=== PATIENT | male | born 1950 | race Caucasian/White ===

== ENCOUNTER 2017-09-25 00:51 | Inpatient (IN) | payer MEDICARE, MEDICAID ==
[~2017-09-25] VITALS: Ht 170.2 cm; Wt 98.9 kg
--- NOTE | 2017-09-25 01:20 | Emergency Room Report ---
History of Present Illness General Chief Complaint: Dyspnea/Respdistress Source: Patient Present Illness HPI 67-year-old male with a history of COPD, hypertension, diabetes, bipolar disorder presents to the ER with wheezing and shortness of breath that started this afternoon he reports he checked his pulse ox and it was in the 50s so he panicked and called 911. Reports a gave him one nebulizer treatment and patient feels much better, he has been on steroids every day for the past week, and he was just discharged from [facility] yesterday for COPD exacerbation. He reports he is supposed to have oxygen tank delivered to his home, but has never been on home O2 prior to this last hospitalization. He reports he feels much better after the nebulizer treatment.he also has prescription for steroids at home that he just filled. Allergies: Coded Allergies: ARIPIPRAZOLE (Verified Allergy, Unknown, 09/25/17) LORAZEPAM (Verified Allergy, Unknown, 09/25/17) Patient History Past Medical History: see triage record Reviewed Nursing Documentation: PMH: Agreed; PSxH: Agreed Nursing Documentation-PMH Hx Hypertension: Yes Hx COPD: Yes History Of Psychiatric Problem: Yes - BIPOLAR Review of Systems All Other Systems: negative except mentioned in HPI Physical Exam Vital Signs Date Time Temp Pulse Resp B/P (MAP) Pulse Ox O2 Delivery O2 Flow Rate FiO2 09/25/17 00:53 98.6 112 22 158/75 94 Simple Mask 98.6 Sp02 EP Interpretation: reviewed, normal General Appearance: no apparent distress, alert, non-toxic Head: normocephalic Eyes: bilateral eye normal inspection, bilateral eye PERRL, bilateral eye EOMI ENT: normal ENT inspection, hearing grossly normal, normal pharynx, no angioedema, normal voice, moist mucus membranes Neck: normal inspection, full range of motion, supple, supple/symm/no masses Respiratory: chest non-tender, lungs clear, wheezing - End expiratory wheezing at bilateral bases, chest symmetrical, palpation of chest normal Cardiovascular #1: normal peripheral pulses, regular rate, rhythm Cardiovascular #2: 2+ radial (R), 2+ radial (L) Gastrointestinal: normal inspection, non tender, soft, no mass, no guarding, no rebound Rectal: deferred Genitourinary: normal inspection, no CVA tenderness Musculoskeletal: back normal, gait/station normal, normal range of motion, non- tender, no calf tenderness Neurologic: alert, responsive, enrollment advisor III-XII nml as tested, motor strength/tone normal, sensory intact, speech normal Psychiatric: judgement/insight normal, memory normal, mood/affect normal, no suicidal/homicidal ideation Skin: normal color, no rash, warm/dry, normal turgor Lymphatic: no adenopathy Medical Decision Making Diagnostic Impression: Primary Impression: Dyspnea ER Course Patient with COPD exacerbation, will admit as he is hypoxic and doesn't have oxygen at home. Given steroids, nebs, oxygen. Patient refused a CXR. Rhythm Strip Diag. Results Rhythm Strip Time: 01:57 EP Interpretation: yes Rate: 107 Rhythm: NSR, no PVC's, no ectopy Chest X-Ray Diagnostic Results Chest X-Ray Diagnostic Results : Chest X-Ray Ordered: Yes # of Views/Limited/Complete: 1 View Indication: Chest Pain EP Interpretation: Yes Interpretation: no consolidation, no effusion, no pneumothorax, no acute cardiopulmonary disease, other - Opacity vs. Scarring L lower lung field and R base Impression: No acute disease Electronically Signed by: Maurilio Anderson MD Last Vital Signs Date Time Temp Pulse Resp B/P (MAP) Pulse Ox O2 Delivery O2 Flow Rate FiO2 09/25/17 00:53 98.6 112 22 158/75 94 Simple Mask 98.6 Disposition: ADMITTED INPATIENT Condition: Stable Signed Out To: MAURILIO Parra M.D September 25, 2017 01:20
[2017-09-25] MEDS ORDERED: Ipratropium 0.02% Inh Soln 2.5ml UD HHN ONE (01:45)
[2017-09-25] MEDS ORDERED: Albuterol ud Inhalation HHN ONE (01:45)
[2017-09-25 02:10] LABS: BASOPHILS % (AUTO) 0.7 % (0.0-2.0); EOSINOPHILS % (AUTO) 0.1 % (0.0-3.0); HEMATOCRIT 33.9 % (42.0-52.0); HEMOGLOBIN 10.3 G/DL (14.2-18.0); MEAN CORPUSCULAR VOLUME 78 FL (80-99); MONOCYTES % (AUTO) 6.4 % (1.0-10.0); NEUTROPHILS % (AUTO) 74.8 % (45.0-75.0); PLATELET COUNT 210 K/UL (150-450); RED BLOOD COUNT 4.36 M/UL (4.70-6.10); RED CELL DISTRIBUTION WIDTH 20.7 % (11.6-14.8); WHITE BLOOD COUNT 6.8 K/UL (4.8-10.8)
[2017-09-25 02:19] LABS: ANION GAP 11 mmol/L (5-15); BLOOD UREA NITROGEN 11 mg/dL (7-18); CALCIUM 8.7 MG/DL (8.5-10.1); CARBON DIOXIDE 25 MMOL/L (21-32); CHLORIDE 103 MMOL/L (98-107); CREATININE 1.4 MG/DL (0.55-1.30); POTASSIUM 4.3 MMOL/L (3.5-5.1); SODIUM 139 MMOL/L (136-145)
[2017-09-25 02:24] LABS: ALANINE AMINOTRANSFERASE 67 U/L (12-78); ALBUMIN 2.7 G/DL (3.4-5.0); ALBUMIN/GLOBULIN RATIO 0.8 (1.0-2.7); ALKALINE PHOSPHATASE 155 U/L (46-116); ASPARTATE AMINO TRANSFERASE 65 U/L (15-37); BILIRUBIN,TOTAL 0.4 MG/DL (0.2-1.0)
[2017-09-25] MEDS ORDERED: METFORMIN HCL5000 GM MC (02:32)
[2017-09-25] MEDS ORDERED: ASPIRIN81 M3 PO (02:32)
[2017-09-25] MEDS ORDERED: LIPITOR80 MG ORAL (02:32)
[2017-09-25] MEDS ORDERED: DEPAKOTE125 MG PO (02:32)
[2017-09-25] MEDS ORDERED: COLACE100 MG ORAL (02:32)
[2017-09-25] MEDS ORDERED: GABAPENTIN250 MG/5 M PO (02:32)
[2017-09-25] MEDS ORDERED: ALPRAZOLAM0.5 M2 ORAL (02:32)
[2017-09-25 03:39] VITALS: BP 121/65
[2017-09-25 04:00] VITALS: BP 108/62
[2017-09-25] MEDS ORDERED: Albuterol/Ipratropium 3ml neb HHN PRN (06:45)
[2017-09-25] MEDS ORDERED: Norco 5mg/325mg tab ORAL PRN (07:00)
[2017-09-25 08:00] VITALS: BP 136/81
[2017-09-25] MEDS: metFORMIN 500mg tab ORAL SCH ×2 (08:50→09:00)
[2017-09-25] MEDS: Depakote 125mg Sprinkles ORAL SCH ×2 (08:51→09:00)
[2017-09-25] MEDS ORDERED: Docusate 100mg cap ORAL SCH (09:00)
[2017-09-25] MEDS ORDERED: Aspirin Baby 81mg ORAL SCH (09:00)
[2017-09-25 12:00] VITALS: BP 129/76
--- NOTE | 2017-09-25 13:41 | Consultation ---
History of Present Illness General Date patient seen: September 25, 2017 Chief Complaint: Dyspnea/Respdistress Reason for Consultation: dyspnea Present Illness HPI 67 year old female with hx of emphysema, morbid obesity, DM, PVD, debility presented to [facility] by paramedics b/o acute desaturation and dyspnea. His troponin was positive as well. therefore he is admitted to telemetry. Pt is visibly dyspnic and coughing constantly. Allergies: Coded Allergies: ARIPIPRAZOLE (Verified Allergy, Unknown, 09/25/17) LORAZEPAM (Verified Allergy, Unknown, 09/25/17) Medication History Scheduled Alprazolam (Alprazolam), 0.5 MG ORAL TID, (Reported) Atorvastatin (Lipitor), 80 MG ORAL BEDTIME, (Reported) Docusate Sodium* (Colace*), 100 MG ORAL DAILY, (Reported) Miscellaneous Medications Aspirin (Aspirin), 81 MG PO, (Reported) Divalproex Sodium (Depakote), 125 MG PO, (Reported) Gabapentin (Gabapentin), 250 MG PO, (Reported) Metformin Hcl (Metformin Hcl), 5,000 GM MC, (Reported) Patient History Healthcare decision maker Resuscitation status Full Code Advanced Directive on File No Review of Systems All Other Systems: negative except mentioned in HPI Physical Exam General Appearance: WD/WN, no apparent distress Lines, tubes and drains: peripheral HEENT: normocephalic, anicteric Neck: non-tender, normal alignment Respiratory/Chest: chest wall non-tender, lungs clear Breasts: no masses Cardiovascular/Chest: normal peripheral pulses Abdomen: normal bowel sounds Genitourinary/Rectal: normal genital exam Last 24 Hour Vital Signs Date Time Temp Pulse Resp B/P (MAP) Pulse Ox O2 Delivery O2 Flow Rate FiO2 09/25/17 12:00 96 09/25/17 12:00 97.7 97 22 129/76 90 Simple Mask 5.0 97.7 09/25/17 10:30 90 22 91 Simple Mask 3.0 28 09/25/17 10:29 90 22 Simple Mask 3.0 09/25/17 08:00 102 09/25/17 08:00 97.2 102 22 136/81 90 Simple Mask 5.0 97.2 09/25/17 04:00 97.5 101 20 108/62 90 Simple Mask 5.0 97.5 09/25/17 04:00 104 09/25/17 03:41 98.6 89 18 121/65 96 Simple Mask 6.0 98.6 09/25/17 03:39 98.6 89 18 12165 96 Simple Mask 6.0 98.6 09/25/17 02:00 108 18 96 Simple Mask 6.0 09/25/17 01:51 110 22 Simple Mask 6.0 09/25/17 01:45 110 22 94 Simple Mask 6.0 09/25/17 01:38 112 22 Simple Mask 09/25/17 00:53 98.6 112 22 158/75 94 Simple Mask 98.6 Intake and Output 09/24/17 09/25/17 19:00 07:00 Intake Total 240 ml Balance 240 ml Intake Oral 240 ml Laboratory Tests Test 09/25/17 01:27 09/25/17 01:56 09/25/17 12:10 Arterial Blood pH 7.428 (7.350-7.450) Arterial Blood Partial Pressure CO2 34.8 mmHg (35.0-45.0) L Arterial Blood Partial Pressure O2 46.9 mmHg (75.0-100.0) Arterial Blood HCO3 22.5 mmol/L (22.0-26.0) Arterial Blood Oxygen Saturation 77.2 % (92.0-98.0) L Arterial Blood Base Excess -1.4 Pasquale Test Positive White Blood Count 6.8 K/UL (4.8-10.8) Red Blood Count 4.36 M/UL (4.70-6.10) L Hemoglobin 10.3 G/DL (14.2-18.0) L Hematocrit 33.9 % (42.0-52.0) L Mean Corpuscular Volume 78 FL (80-99) L Mean Corpuscular Hemoglobin 23.7 PG (27.0-31.0) L Mean Corpuscular Hemoglobin Concent 30.4 G/DL (32.0-36.0) L Red Cell Distribution Width 20.7 % (11.6-14.8) H Platelet Count 210 K/UL (150-450) Mean Platelet Volume 7.9 FL (6.5-10.1) Neutrophils (%) (Auto) 74.8 % (45.0-75.0) Lymphocytes (%) (Auto) 18.0 % (20.0-45.0) L Monocytes (%) (Auto) 6.4 % (1.0-10.0) Eosinophils (%) (Auto) 0.1 % (0.0-3.0) Basophils (%) (Auto) 0.7 % (0.0-2.0) Sodium Level 139 MMOL/L (136-145) Potassium Level 4.3 MMOL/L (3.5-5.1) Chloride Level 103 MMOL/L (98-107) Carbon Dioxide Level 25 MMOL/L (21-32) Anion Gap 11 mmol/L (5-15) Blood Urea Nitrogen 11 mg/dL (7-18) Creatinine 1.4 MG/DL (0.55-1.30) H Estimat Glomerular Filtration Rate 50.7 mL/min (>60) Glucose Level 169 MG/DL (74-106) H Calcium Level 8.7 MG/DL (8.5-10.1) Total Bilirubin 0.4 MG/DL (0.2-1.0) Aspartate Amino Transf (AST/SGOT) 65 U/L (15-37) H Alanine Aminotransferase (ALT/SGPT) 67 U/L (12-78) Alkaline Phosphatase 155 U/L (46-116) H Troponin I 0.512 ng/mL (0.000-0.056) 0.280 ng/mL (0.000-0.056) Total Protein 6.2 G/DL (6.4-8.2) L Albumin 2.7 G/DL (3.4-5.0) L Globulin 3.5 g/dL Albumin/Globulin Ratio 0.8 (1.0-2.7) L Height (Feet): 5 Height (Inches): 7.00 Weight (Pounds): 218 Medications Current Medications Medications (Trade) Dose Ordered Sig/Chivo Route PRN Reason Start Time Stop Time Status Last Admin Dose Admin Acetaminophen (Tylenol) 650 mg Q6H PRN ORAL Mild Pain/Temp > 100.5 09/25/17 07:00 10/25/17 06:59 Acetaminophen/ Hydrocodone Bitart ([place] 5/325) 1 tab Q6H PRN ORAL For Pain 09/25/17 07:00 10/02/17 06:59 Albuterol/ Ipratropium (Albuterol/ Ipratropium) 3 ml Q4H PRN HHN Shortness of Breath 09/25/17 06:45 09/30/17 06:44 Albuterol/ Ipratropium (Albuterol/ Ipratropium) 3 ml Q8HRT HHN 09/25/17 15:00 09/30/17 14:59 Aspirin (ASA) 81 mg DAILY ORAL 09/25/17 09:00 10/25/17 08:59 09/25/17 08:51 Atorvastatin Calcium (Lipitor) 80 mg BEDTIME ORAL 09/25/17 21:00 10/25/17 20:59 Divalproex Sodium (Depakote Sprinkles) 125 mg BID ORAL 09/25/17 09:00 10/25/17 08:59 Docusate Sodium (Colace) 100 mg BID ORAL 09/25/17 09:00 10/25/17 08:59 09/25/17 08:50 Gabapentin (Neurontin) 300 mg TID ORAL 09/25/17 09:00 10/25/17 08:59 09/25/17 08:51 Heparin Sodium (Porcine) (Heparin 5000 units/ml) 5,000 units EVERY 8 HOURS SUBQ 09/25/17 14:00 10/25/17 13:59 Metformin HCl (Glucophage) 1,000 mg BID ORAL 09/25/17 09:00 10/25/17 08:59 Methylprednisolone Sodium Succinate (Solu-MEDROL) 40 mg EVERY 8 HOURS IVP 09/25/17 14:00 10/25/17 13:59 Ondansetron HCl (Zofran) 4 mg Q4HR PRN IVP Nausea & Vomiting 09/25/17 07:00 10/25/17 06:59 Assessment/Plan Problem List: (1) Acute respiratory failure ICD Codes: J96.00 - Acute respiratory failure, unspecified whether with hypoxia or hypercapnia SNOMED: 95948287 (2) Diabetes mellitus ICD Codes: E11.9 - Type 2 diabetes mellitus without complications SNOMED: 86499248 (3) Emphysema lung ICD Codes: J43.9 - Emphysema, unspecified SNOMED: 56858287 (4) Morbid obesity ICD Codes: E66.01 - Morbid (severe) obesity due to excess calories SNOMED: 933114755, [id number] Assessment/Plan respiratory treatment check sputum iv steroids iv abx check echo dvt prophylaxis sliding scale diabetic diet Nirmala Mai MD September 25, 2017 13:41
[2017-09-25 13:48] LABS: CREATINE KINASE 44 U/L (26-308)
[2017-09-25] MEDS ORDERED: Promethazine/Codeine 5ml UD ORAL PRN (13:48)
[2017-09-25] MEDS ORDERED: Heparin 5000 units/ml inj SUBQ SCH (14:00)
[2017-09-25] MEDS ORDERED: Solu-MEDROL 40mg Inj IVP SCH (14:00)
--- NOTE | 2017-09-25 14:22 | Diagnostic Imaging Report ---
Indication: Reason For Exam: SOB Technique: One view of the chest Comparison: none Findings: Irregular opacity is seen adjacent to the cardiac apex on the left. The lungs and pleural spaces are otherwise clear. There are median sternotomy sutures. Impression: Irregular left basilar opacity, probably a focal patchy infiltrate or scarring. However, follow-up is recommended to exclude underlying mass lesion. Dr. Singh notified of this finding in person
[2017-09-25] MEDS ORDERED: Albuterol/Ipratropium 3ml neb HHN SCH (15:00)
[2017-09-25] MEDS ORDERED: Atorvastatin 80mg tab ORAL SCH (21:00)
--- NOTE | 2017-09-25 22:59 | History & Physical ---
History and Physical History & Physicial patient signed AMA prior my arrival. Karl Singh MD September 25, 2017 22:59
--- NOTE | 2017-09-28 13:37 | Cardiology Report ---
APPROVED REPORT EXAM: Two-dimensional and M-mode echocardiogram with Doppler and color Doppler. INDICATION SOB M-Mode DIMENSIONS IVSd1.4 (0.7-1.1cm)Left Atrium (MM)3.4 (1.6-4.0cm) LVDd4.9 (3.5-5.6cm)Aortic Root4.3 (2.0-3.7cm) PWd1.3 (0.7-1.1cm)Aortic Cusp Exc.1.8 (1.5-2.0cm) IVSs2.0 cm LVDs3.6 (2.5-4.0cm) PWs1.6 cm Technically difficult study due to poor acoustical windows. Normal left ventricular chamber size. Systolic function and wall motion is grossly normal . Left ventricular ejection fraction estimated to be 55-60 %. Mild left ventricular hypertrophy by 2-D. No evidence of pericardial effusion. Left atrial size at normal limits. Right cardiac chamber sizes are upper limits of normal . Focal aortic valve sclerosis with adequate cusp excursion. Moderately Thickened mitral valve leaflets with normal excursion. Moderately Mitral annulus and aortic root calcification. Pulmonic valve not well visualized. Normal tricuspid valve structure. IVC at normal size without physiologic collapse. A color flow and spectral Doppler study was performed and revealed: No aortic regurgitation. Trace mitral regurgitation. Noemal left ventricular diastolic function . Trace tricuspid regurgitation. Tricuspid systolic velocities suggests peak right ventricular systolic pressure of 14 mmHg Trace Pulmonic regurgitation present.
--- NOTE | 2017-09-28 14:01 | Cardiology Report ---
APPROVED REPORT EKG Measurement Heart [id number] Sinus tachycardia Abnormal ECG
--- NOTE | 2017-09-29 10:31 | Discharge Summary ---
Discharge Summary Hospital Course Date of Admission September 25, 2017 at 01:46 Date of Discharge September 25, 2017 at 15:25 Admitting Diagnosis COPD HPI Abdulaziz Rodriguez is a 67 year old male who was admitted on September 25, 2017 at 01:46 for Chronic Obstructive Pulmonary Disease Hospital Course dc summary #[id number] Discharge Discharge Disposition Patient was signed AMA Discharge Instructions Discharge Instructions Special Instructions I have been assigned to complete a D/C Summary on this account. I was not involved in the patient management Jayleen Van NP September 29, 2017 10:31
--- NOTE | 2017-09-29 17:15 | Discharge Summary 2 SIG ---
DATE OF ADMISSION: 09/25/2017 DATE OF DISCHARGE: 09/25/2017 REASON FOR ADMISSION: 67-year-old male with past medical history significant for emphysema, diabetes, bipolar disorder, and morbid obesity, presented to emergency department with hypoxemia. He required initially placement of simple mask to maintain proper oxygenation. Chest x-ray showed left lower lung field and right base opacity versus scarring. No consolidation, no effusion, no pneumothorax was noted. Vital signs revealed tachycardia and tachypnea. The patient had no leukocytosis. Mild anemia. Troponin elevated- 0.512. The patient was admitted with diagnoses of acute renal failure, emphysema, diabetes mellitus, and morbid obesity. BANK OFFICER: Nirmala Mai M.D., [employer]. HOSPITAL COURSE: The patient was admitted to telemetry floor. Serial troponin were ordered. Second troponin trended down to 0.28. The patient had no cardiac symptoms. Initial ECG and telemetry revealed no acute ischemic changes. Supplemental oxygen provided via simple mask to keep pulse oximetry above 92%. Pulmonary toilet around the clock and as needed initiated. The patient was started on the IV steroids and empiric antibiotics. Sputum culture was ordered. DVT prophylaxis provided. Antitussives were administered as needed. Blood sugar was managed with metformin. Home medication were resumed. Echocardiogram was done and revealed preserved ejection fraction. The patient later decided to sign against medical advice. The patient removed a simple mask and showed no signs of respiratory distress. No complaint of chest pain. The risks and consequences of signing against medical advice were discussed with the patient. The patient verbalized understanding, signed the consent and left. FINAL DIAGNOSES: 1. Acute renal failure. 2. Emphysema. 3. Diabetes mellitus. 4. Morbid obesity. Karl Singh M.D. I have been assigned to dictate discharge summary on this account and I was not involved in the patient's management. Jayleen Cartwrightgunner N.PKerri DR: YELENA JOB#: [id number] CC: ALIDA
== END 2017-09-25 15:25 | disposition left against medical advice (07) | DRG 191 ==
LOC: EDBD 00:51 → EMR 01:15 → 2E 01:46 → EDBEDREQSVC 02:08 → EDBEDREQ 02:45 → 2E 03:58
DX: J44.1 Chronic obstructive pulmonary disease with (acute) exacerbation (principal); N17.9 Acute kidney failure, unspecified; E11.9 Type 2 diabetes mellitus without complications; E66.01 Morbid (severe) obesity due to excess calories; I10 Essential (primary) hypertension; F31.9 Bipolar disorder, unspecified; Z88.8 Allergy status to other drugs, medicaments and biological substances; R09.02 Hypoxemia; I73.9 Peripheral vascular disease, unspecified
CPT/HCPCS: 36415; 36600; 71045; 80053; 82550; 82803; 82962; 84484; 84550; 85025; 93005; 93306; 94640; 94664; 99285; J7620